=== PATIENT | female | born 1945 | race Caucasian/White ===

== ENCOUNTER → 2016-11-26 | Outpatient (CLI) | payer MEDICARE, BC ==
[~2016-11-26] MED LIST: ATENOLOL PO; FLONASE 0.05% N16 G1; PRINIVIL40 MG PO; ZITHROMAX PO
--- NOTE | ~2016-11-26 | CT4 ---
[facility] A Service of [facility] / [facility] RADIOLOGY TEXT RESULTS PATIENT: PIYUSH HEDRICK LOCATION: [facility] : 45 UNIT #: [id number] AGE: [address]: Faviola Lopez APRN SEX: F ORDER DR: [id number] [facility] [address] [place], [place] [address] [id number] O MR#: [id number] #: [id number] NAME: PIYUSH HEDRICK : 1945 SEX: F STUDY DATE/TIME: 11/26/2016 16:09 UNIT: [facility] ROOM: STUDY DESCRIPTION: CT Abd and Pelv Wo Cont Attending Physician: Faviola Lopez A.P.R.N. Referring Physician: Faviola Lopez A.P.R.N. Ordering Physician: Faviola Lopez A.P.R.N. Primary Care Physician: Roland Trejo M.D. MEDICAL IMAGING REPORT This report is preliminary unless electronic signature is present EXAM CT abdomen and pelvis without contrast HISTORY A 71-year-old female, hematuria x1 day. TECHNIQUE This CT exam was performed with one or more of the following radiation dose reduction techniques: automatic exposure control, adjustment of mA and/or kV according to patient size, and iterative reconstruction. Axial images performed through the abdomen and pelvis without contrast. Multiplanar reconstructed images reviewed at a workstation. FINDINGS Abdomen: Lung bases demonstrates a small amount of right middle lobe scarring or atelectasis. Probable emphysematous changes. Liver, spleen, gallbladder unremarkable. The pancreas and adrenal glands appear normal. There are bilateral perinephric intrarenal calcifications which appear to be vascular. No convincing evidence of renal stone or obstruction. There is a small less than 1 cm hyperdense lesion within the left kidney probably represents a hyperdense renal cyst. A faint abnormality was noted on the patient's CT scan of 09/20/2015. Visualized GI tract unremarkable. Retroperitoneum demonstrates diffuse aortic atherosclerotic changes. Pelvis: Bladder is decompressed. Uterus appears atrophic. Osseous structures remarkable for multilevel degenerative disc disease and multilevel spinal foraminal stenosis. IMPRESSION 1. No definite acute intraabdominal or intrapelvic pathology identified. [facility]. [facility] A Service of [facility] & [facility] / [facility] RADIOLOGY TEXT RESULTS PATIENT: PIYUSH HEDRICK LOCATION: [facility] : 45 UNIT #: [id number] AGE: [address]: Faviola Lopez MOWING MACHINE OPERATOR SEX: F ORDER DR: There are bilateral renal calcifications though these appear to be vascular in nature. No definite renal stone or obstruction identified. 2. An 8 mm hyperdense left renal lesion probably represents hyperdense renal cyst. 3. Moderately advanced multilevel degenerative disc disease and facet arthropathy lumbar spine with multilevel stenosis. These findings were called and discussed with zandra Lopez at the time of this dictation. Dictated by... Deanne Mejía M.D. THIS IS AN ELECTRONICALLY VERIFIED REPORT Deanne Mejía M.D. at 11/29/2016 7:28 AM Otilia TD: 11/26/2016 23:46 JOB #: [id number] MEDICAL IMAGING REPORT Page 1 of 1 COPY
== END | disposition home or self-care (01) ==
LOC: CCAT 15:53
DX: R31.9 Hematuria, unspecified (principal); N28.89 Other specified disorders of kidney and ureter; M48.06 Spinal stenosis, lumbar region; M51.36 Other intervertebral disc degeneration, lumbar region; M12.88 Other specific arthropathies, not elsewhere classified, other specified site
CPT/HCPCS: 74176